=== PATIENT | female | born 1950 | race Asian ===

== ENCOUNTER → 2016-12-14 | Outpatient (CLI) | payer OTHER ==
[~2016-12-14] MED LIST: HCTZ PO; LISINOPRIL10 MG PO; MULTI VITAMIN1 EACH PO; PRILOSEC20 MG PO
--- NOTE | ~2016-12-14 | CR63 ---
[facility] A Service of [facility] & [facility] RADIOLOGY TEXT RESULTS PATIENT: DALE ANTUNEZ LOCATION: [facility] : 54 UNIT #: [id number] AGE: [address]: DANY LANG SEX: F ORDER DR: [id number] [facility] [address] [place], [place] [address] [id number] O MR#: [id number] Acc #: [id number] NAME: DALE ANTUNEZ : 1950 SEX: F STUDY DATE/TIME: 12/14/2016 9:49 UNIT: [facility] ROOM: STUDY DESCRIPTION: CR Chest 2 View Attending Physician: Prieto Navarro Referring Physician: Prieto Navarro Ordering Physician: Prieto Navarro Primary Care Physician: Coreen Antonio M.D. MEDICAL IMAGING REPORT This report is preliminary unless electronic signature is present EXAM Two-view chest 12/14/2016. HISTORY 65-year-old female with hemoptysis for 3-4 days. COMPARISON Comparison none. FINDINGS 2 views of the chest demonstrate clear lungs. No pleural effusion or pneumothorax. Heart size and mediastinum within normal limits. Pulmonary vasculature normal. IMPRESSION No acute cardiopulmonary findings. Dictated by... Matthieu Staton M.D. THIS IS AN ELECTRONICALLY VERIFIED REPORT Matthieu Staton M.D. at 12/15/2016 3:25 PM SPARKLE/erasmo TD: 12/14/2016 14:31 JOB #: [id number] MEDICAL IMAGING REPORT Page 1 of 1 COPY
== END | disposition home or self-care (01) ==
LOC: CRAD 09:29
DX: R04.2 Hemoptysis (principal)
CPT/HCPCS: 71020

== ENCOUNTER 2017-03-13 22:13 | Emergency (ER) | payer OTHER ==
--- NOTE | ~2017-03-13 | CR72 ---
[facility] A Service of [facility] & [facility] RADIOLOGY TEXT RESULTS PATIENT: DALE ANTUNEZ LOCATION: [facility] : 54 UNIT #: [id number] AGE: [address]: Jakub Silva MD SEX: F ORDER DR: [id number] [facility] [address] [place], [place] [address] [id number] E MR#: [id number] Acc #: [id number] NAME: DALE ANTUNEZ : 1950 SEX: F STUDY DATE/TIME: 03/13/2017 23:17 UNIT: [facility] ROOM: STUDY DESCRIPTION: CR Chest Single View Portable Attending Physician: Bernard Silva M.D. Ordering Physician: Beranrd Silva M.D. Primary Care Physician: Coreen Antonio M.D. MEDICAL IMAGING REPORT This report is preliminary unless electronic signature is present EXAM Portable chest INDICATION Hemoptysis with shortness of air today. PROCEDURE Frontal view chest. COMPARISON 12/14/2016. FINDINGS Mild cardiomegaly. No dense consolidation, visible pleural fluid or pneumothorax. IMPRESSION Mild cardiomegaly. No active process. Dictated by... Bernard Malik M.D. THIS IS AN ELECTRONICALLY VERIFIED REPORT Bernard Malik M.D. at 03/14/2017 10:02 PM SHARIF/adán TD: 03/14/2017 06:42 JOB #: [id number] MEDICAL IMAGING REPORT Page 1 of 1 COPY
--- NOTE | ~2017-03-13 | CT16 ---
[facility] A Service of [facility] RADIOLOGY TEXT RESULTS PATIENT: DALE ANTUNEZ LOCATION: [facility] : 54 UNIT #: [id number] AGE: [address]: Jakub Silva MD SEX: F ORDER DR: [id number] [facility] [address] [place], [place] [address] [id number] E MR#: [id number] Acc #: [id number] NAME: DALE ANTUNEZ : 1950 SEX: F STUDY DATE/TIME: 03/14/2017 1:11 UNIT: [facility] ROOM: STUDY DESCRIPTION: CT Angio Chest for PE Attending Physician: Bernard Silva M.D. Ordering Physician: Bernard Silva M.D. Primary Care Physician: Coreen Antonio M.D. MEDICAL IMAGING REPORT This report is preliminary unless electronic signature is present EXAM CTA chest PE protocol INDICATION Cough and hemoptysis tonight. PROCEDURE Contrast-enhanced CTA of the chest attention on opacification of pulmonary arteries. Coronal 3-D MIP sagittal reformatted images reconstructed and submitted. This CT exam was performed with one or more of the following radiation dose reduction techniques: automatic exposure control, adjustment of mA and/or kV according to patient size, and iterative reconstruction. FINDINGS No evidence for pulmonary embolus. No evidence for acute aortic injury. No adenopathy. No acute findings in the included upper abdomen. No aggressive appearing bone lesion. There are areas of cystic bronchiectasis in the right lower lobe. Scattered areas of mucous plugging in the right lower lobe. There is a area of nodular opacity in the right apex that measures up to 1.7 cm. IMPRESSION 1. No evidence for pulmonary embolus. 2. Cystic bronchiectasis with areas of mucous plugging in the right lower lobe. 3. Somewhat nodular opacity in the right apex may represent infectious or inflammatory change. Recommend attention on a short-interval followup chest CT to document improvement after appropriate therapy Dictated by... [facility] A Service of [facility] RADIOLOGY TEXT RESULTS PATIENT: DALE ANTUNEZ LOCATION: [facility] : 54 UNIT #: [id number] AGE: [address]: Jakub Silva MD SEX: F ORDER DR: Bernard Malik M.D. THIS IS AN ELECTRONICALLY VERIFIED REPORT Bernard Malik M.D. at 03/14/2017 10:07 PM Gómez TD: 03/14/2017 07:55 JOB #: [id number] MEDICAL IMAGING REPORT Page 1 of 1 COPY
[2017-03-13 23:25] LABS: BASOPHIL# 0.1 X10e3 (0-0.3); BASOPHIL% 0.8 % (0-2.5); EOSINOPHIL# 0.1 X10e3 (0-0.7); EOSINOPHIL% 2.1 % (0.0-7.0); HEMATOCRIT 40.1 % (35.0-45.0); HEMOGLOBIN 13.2 gm/dL (12.0-16.0); LYMPHOCYTE# 2.4 X10e3 (1.0-3.5); LYMPHOCYTE% 34.8 % (17.0-45.0); MEAN CELL VOLUME 87.9 FL (83-96); MEAN PLATELET VOLUME 7.7 FL (6.5-11.5); MONOCYTE# 0.6 X10e3 (0-1.0); MONOCYTE% 9.1 % (3.0-12.0); NEUTROPHIL# 3.7 X10e3 (1.5-7.1); NEUTROPHIL% 53.2 % (40-75); PLATELET COUNT 201 X10e3 (140-420); RED BLOOD COUNT 4.57 X10e (3.90-5.30); RED CELL DISTRIBUTION WIDTH 12.7 % (11.0-15.5)
[2017-03-13 23:26] LABS: DIFF IND NO
[2017-03-13 23:46] LABS: ALBUMIN SERUM 3.9 g/dL (3.5-5.0); BILIRUBIN, DIRECT 0.1 mg/dL (0.0-0.2); BILIRUBIN,INDIRECT 0.2 mg/dL (0.0-0.9); BILIRUBIN,TOTAL 0.3 mg/dL (0.2-2.0); BUN/CREATININE RATIO 22.85; CREATININE SERUM 0.7 mg/dL (0.6-1.4); GLOM FILT RATE Estimated 91.6 mL/min (>60); POTASSIUM 3.8 mmol/L (3.5-5.1); PROTEIN TOTAL SERUM 7.4 g/dL (6.0-8.3)
== END 2017-03-14 02:30 | disposition home or self-care (01) ==
LOC: CED 22:13
PROVIDERS: Emergency Medicine
DX: R04.2 Hemoptysis (principal); I10 Essential (primary) hypertension; Z90.5 Acquired absence of kidney
CPT/HCPCS: 36415; 71010; 71275; 80048; 80076; 85025; 96374; 99285; Q9967